=== PATIENT | female | born 1955 | race Caucasian/White ===

== ENCOUNTER → 2016-10-07 | Outpatient (CLI) | payer SELFPAY ==
[~2016-10-07] MED LIST: CLEOCIN HC150 MG/CAP PO; HCTZ 25MG25 MG PO; LEVOTHYROXIN0.075 MG PO; LIPITOR20 MG PO; NEURONTIN; NEURONTIN300 MG/CAP PO; PAROXETINE20 MG PO; ULTRAM 50MG TAB50 MG PO; ZESTRIL 20MG TA20 MG PO
== END ==
LOC: WCC 09:48
DX: E11.621 Type 2 diabetes mellitus with foot ulcer (principal); L89.892 Pressure ulcer of other site, stage 2
CPT/HCPCS: 27510; A6197; G0463

== ENCOUNTER → 2016-10-14 | Outpatient (CLI) | payer SELFPAY | LOC: WCC 08:19 | DX: E11.621 Type 2 diabetes mellitus with foot ulcer (principal); L89.892 Pressure ulcer of other site, stage 2 | CPT/HCPCS: 27510; A6197; G0463 ==

== ENCOUNTER → 2016-10-24 | Outpatient (CLI) | payer SELFPAY | LOC: WCC 10:25 | DX: E11.621 Type 2 diabetes mellitus with foot ulcer (principal); L97.519 Non-pressure chronic ulcer of other part of right foot with unspecified severity; Z89.422 Acquired absence of other left toe(s) | CPT/HCPCS: 27510; A6197; G0463 ==

== ENCOUNTER → 2016-10-31 | Outpatient (CLI) | payer SELFPAY | END | disposition home or self-care (01) | LOC: EUO 12-25 13:30 → EDSTATUS 12-25 13:30 → WCC 13:25 → EUO 13:25 | DX: E11.621 Type 2 diabetes mellitus with foot ulcer (principal); L97.529 Non-pressure chronic ulcer of other part of left foot with unspecified severity | CPT/HCPCS: 27510; A6197; G0463 ==

== ENCOUNTER 2016-11-15 12:30 | Outpatient (RCR) | payer SELFPAY | END 2016-11-22 12:39 | disposition home or self-care (01) | LOC: WSOT 12:30 | DX: M79.642 Pain in left hand (principal); M79.641 Pain in right hand; R53.1 Weakness ==

== ENCOUNTER 2016-11-15 13:00 | Outpatient (RCR) | payer SELFPAY | END 2016-11-22 12:40 | disposition home or self-care (01) | LOC: WSPT 13:00 | DX: R53.1 Weakness (principal) ==

== ENCOUNTER → 2016-11-21 | Outpatient (CLI) | payer MEDICARE | LOC: WCC 10-31 10:45 | DX: E11.621 Type 2 diabetes mellitus with foot ulcer (principal); L97.509 Non-pressure chronic ulcer of other part of unspecified foot with unspecified severity | CPT/HCPCS: 27510; A6197; G0463 ==

== ENCOUNTER 2017-01-10 13:00 | Outpatient (RCR) | payer MEDICARE | END 2017-01-30 15:25 | disposition home or self-care (01) | LOC: WSOT 13:00 | DX: M62.81 Muscle weakness (generalized) (principal); M25.50 Pain in unspecified joint | CPT/HCPCS: G8978-GP; G8979-GP; G8980-GP; G8987-GO; G8988-GO; G8989-GO ==

== ENCOUNTER → 2017-08-07 | Outpatient (CLI) | payer MEDICARE | LOC: COL.RAD 13:02 | DX: M48.061 Spinal stenosis, lumbar region without neurogenic claudication (principal); M51.26 Other intervertebral disc displacement, lumbar region; M47.817 Spondylosis without myelopathy or radiculopathy, lumbosacral region; E11.42 Type 2 diabetes mellitus with diabetic polyneuropathy ==

== ENCOUNTER 2017-08-22 14:45 | Outpatient (RCR) | payer MEDICARE | END 2017-09-06 10:13 | disposition home or self-care (01) | LOC: WSPT 14:45 | DX: G60.9 Hereditary and idiopathic neuropathy, unspecified (principal); R29.6 Repeated falls; M62.81 Muscle weakness (generalized); M25.50 Pain in unspecified joint | CPT/HCPCS: G8978-GP; G8979-GP; G8980-GP ==

== ENCOUNTER → 2018-01-26 | Outpatient (CLI) | payer MEDICARE, OTHER ==
[2018-01-26 11:41] LABS: INR 1.1 (0.8-3.0); PROTHROMBIN TIME 12.3 SECONDS (9.7-12.8)
[2018-01-26 11:44] LABS: BASO # 0.1 (0.0-0.2); BASO % 0.6 % (0.0-2.0); EOS # 0.4 (0.0-0.7); EOS % 4.1 % (0-4.0); GRAN # 5.1 (1.4-6.5); GRAN % 60.4 % (42.2-75.2); HEMATOCRIT 40.1 % (37.0-47.0); HEMOGLOBIN 13.5 g/dl (12.5-16.0); LYMPH # 2.4 (1.2-3.4); LYMPH % 28.8 % (20.0-51.0); MEAN CELL VOLUME 88 fl (80.0-100.0); MEAN CORPUSCULAR HEMOGLOBIN 30 pg (27.0-31.0); MEAN CORPUSCULAR HGB CONC 34 g/dl (33.0-37.0); MEAN PLATELET VOLUME 11.4 fl (7.4-10.4); MONO # 0.5 (0.1-0.6); MONO % 5.9 % (1.7-9.3); PLATELET COUNT 212 K/mm3 (130-400); RED BLOOD COUNT 4.57 M/mm3 (4.10-5.30); REDCELL DISTRIBUTION WIDTH-CV 13.7 % (11.5-14.5)
[2018-01-26 11:46] LABS: ALBUMIN 4.1 gm/dL (3.5-5.0); BILIRUBIN,TOTAL 0.5 mg/dL (0.0-1.0); CALCIUM 10.1 mg/dL (8.4-10.2); CREATININE, serum 0.67 mg/dL (0.52-1.25); POTASSIUM 3.5 mmol/L (3.4-5.0); TOTAL PROTEIN 7.9 gm/dL (6.4-8.2)
== END ==
LOC: COL.LAB 10:53
PROVIDERS: Registered Nurse
DX: Z01.818 Encounter for other preprocedural examination (principal); E78.5 Hyperlipidemia, unspecified; I10 Essential (primary) hypertension; E66.01 Morbid (severe) obesity due to excess calories; E11.9 Type 2 diabetes mellitus without complications

== ENCOUNTER 2018-02-20 13:00 | Outpatient (RCR) | payer MEDICARE, OTHER | END 2018-02-22 17:48 | disposition home or self-care (01) | LOC: WSPT 13:00 | DX: Z01.818 Encounter for other preprocedural examination (principal); M17.12 Unilateral primary osteoarthritis, left knee | CPT/HCPCS: G8978-GP; G8979-GP; G8980-GP ==

== ENCOUNTER 2018-05-16 08:45 | Outpatient (RCR) | payer MEDICARE | END 2018-05-24 | disposition home or self-care (01) | LOC: WSPT | DX: Z47.1 Aftercare following joint replacement surgery (principal); Z96.652 Presence of left artificial knee joint | CPT/HCPCS: G8978-GP; G8979-GP; G8980-GP ==

== ENCOUNTER 2018-05-29 13:15 | Outpatient (RCR) | payer MEDICARE | END 2018-08-27 | disposition home or self-care (01) | LOC: WSPT | DX: Z47.1 Aftercare following joint replacement surgery (principal); Z96.652 Presence of left artificial knee joint ==

== ENCOUNTER → 2020-10-09 | Outpatient (CLI) | payer MEDICARE | LOC: MC.RAD 09:51 | DX: Z12.31 Encounter for screening mammogram for malignant neoplasm of breast (principal); N63.10 Unspecified lump in the right breast, unspecified quadrant; N63.20 Unspecified lump in the left breast, unspecified quadrant ==

== ENCOUNTER → 2020-10-15 | Outpatient (CLI) | payer MEDICARE | LOC: MC.RAD 13:46 | DX: N60.01 Solitary cyst of right breast (principal); N63.22 Unspecified lump in the left breast, upper inner quadrant ==

== ENCOUNTER 2020-11-10 06:28 | Day surgery (SDC) | payer MEDICARE ==
[~2020-11-10] VITALS: Ht 167.6 cm; Wt 127.4 kg
[2020-11-10 07:40] VITALS: BP 134/62; PULSE 20; TEMP 98.3
[2020-11-10] MEDS ORDERED: LYRICA200 MG PO (07:48)
[2020-11-10] MEDS ORDERED: HCTZ 25MG TAB25 MG PO (07:49)
[2020-11-10] MEDS ORDERED: CRESTOR20 MG PO (07:49)
[2020-11-10] MEDS ORDERED: MELATONIN5 M1 PO (07:50)
[2020-11-10] MEDS ORDERED: ASPIRIN 81M81 MG/TA2 PO (07:51)
[2020-11-10] MEDS ORDERED: MASON NATURAL500 MG PO (07:51)
[2020-11-10] MEDS ORDERED: TYLENOL 500MG500 MG PO (07:52)
[2020-11-10] MEDS ORDERED: VITAMIN B12 781 TAB PO (07:52)
[2020-11-10] MEDS ORDERED: DUO-KAPS1 CAP PO (07:53)
[2020-11-10] MEDS ORDERED: GLUCOPHAGE500 MG/TAB PO (07:54)
[2020-11-10] MEDS ORDERED: PRINIVIL20 MG PO (07:54)
[2020-11-10] MEDS ORDERED: PAXIL 20MG20 MG PO (07:55)
[2020-11-10] MEDS ORDERED: TIROSINT25 MC1 PO (07:55)
--- NOTE | 2020-11-10 09:45 | NUR ---
Patient taken to radiology per cart.
--- NOTE | 2020-11-10 11:20 | NUR ---
Patient returns to room 6 per cart from radiology and is resting on the cart. Siderails up x2 and call light in reach.
[2020-11-10] MEDS ORDERED: MOTRIN 600600 MG/TAB PO (15:03)
[2020-11-10] MEDS ORDERED: NORCO 325 MG-51 TAB PO (15:03)
[2020-11-10 15:30] VITALS: BP 109/52; PULSE 85; TEMP 98.3
--- NOTE | 2020-11-10 15:30 | NUR ---
TO RM 6 PER CART FROM PACU. ALERT ORIENTED X3, TALKING WITH STAFF. INCISION CLEAN AND DRY WITH SKIN ADHESIVE. DENIES PAIN OR DISCOMFORT. DENIES NAUSEA
[2020-11-10 15:45] VITALS: BP 109/57; PULSE 86
--- NOTE | 2020-11-10 15:45 | NUR ---
RECEIVED MUFFIN AND CRANBERRRY JUICE.
[2020-11-10 16:00] VITALS: BP 107/50; PULSE 89
--- NOTE | 2020-11-10 16:00 | NUR ---
ATE 100% AND TOLERATED WELL. PATIENT TALKING TO FRIENDS ON PHONE.
--- NOTE | 2020-11-10 16:15 | NUR ---
AMBULATED TO BATHROOM USING CANE WITH ONE ASSIST.
--- NOTE | 2020-11-10 16:30 | NUR ---
VOIDED AND AMBULATED BACK TO WITH CANE. HAD TO REMIND PATIENT TO SLOW HER GAIT DOWN TO MAKE IT MORE STEADY. RECEIVED DISCHARGE INSTRUCTIONS AND VERBALIZED UNDERSTANDING. DISCONTINUED IV AND INT. CALLED FRIEND FOR RIDE HOME. ASSISTED PATIENT DRESSED.
--- NOTE | 2020-11-10 16:56 | NUR ---
DISCHARGED PER WC BY NURSING STAFF TO PRIVATE CAR IN CARE OF FRIEND ALL PERSONAL BELONGINGS SENT WITH PATIENT.
== END 2020-11-10 16:57 | disposition home or self-care (01) ==
LOC: SDCO 06:28
DX: C50.412 Malignant neoplasm of upper-outer quadrant of left female breast (principal); E11.42 Type 2 diabetes mellitus with diabetic polyneuropathy; E11.621 Type 2 diabetes mellitus with foot ulcer; L97.509 Non-pressure chronic ulcer of other part of unspecified foot with unspecified severity; E66.01 Morbid (severe) obesity due to excess calories; Z68.41 Body mass index [BMI] 40.0-44.9, adult; Z20.822 Contact with and (suspected) exposure to COVID-19; E03.9 Hypothyroidism, unspecified; J45.909 Unspecified asthma, uncomplicated; I10 Essential (primary) hypertension; G89.29 Other chronic pain; M54.9 Dorsalgia, unspecified; E78.5 Hyperlipidemia, unspecified; M19.90 Unspecified osteoarthritis, unspecified site; F32.9 Major depressive disorder, single episode, unspecified; Z17.0 Estrogen receptor positive status [ER+]; Z88.0 Allergy status to penicillin; Z79.84 Long term (current) use of oral hypoglycemic drugs; Z79.890 Hormone replacement therapy; Z89.421 Acquired absence of other right toe(s); Z79.899 Other long term (current) drug therapy; Z80.8 Family history of malignant neoplasm of other organs or systems
CPT/HCPCS: A9541; J1100; J2250; J2405; J2704; J2765; J3010; J7030; J7120

== ENCOUNTER → 2021-03-08 | Outpatient (CLI) | payer MEDICARE, MEDICAID ==
[~2021-03-08] MED LIST changes: +ASPIRIN 81M81 MG/TA2 PO; +CRESTOR20 MG PO; +DUO-KAPS1 CAP PO; +GLUCOPHAGE500 MG/TAB PO; +HCTZ 25MG TAB25 MG PO; +LYRICA200 MG PO; +MASON NATURAL500 MG PO; +MELATONIN5 M1 PO; +MOTRIN 600600 MG/TAB PO; +NORCO 325 MG-51 TAB PO; +PAXIL 20MG20 MG PO; +PRINIVIL20 MG PO; +TIROSINT25 MC1 PO; +TYLENOL 500MG500 MG PO; +VITAMIN B12 781 TAB PO
== END ==
LOC: MC.RAD 11:00
DX: N60.01 Solitary cyst of right breast (principal); R92.2 Inconclusive mammogram

== ENCOUNTER → 2021-10-26 | Outpatient (CLI) | payer MEDICARE, MEDICAID | LOC: MC.RAD 14:27 | DX: Z85.3 Personal history of malignant neoplasm of breast (principal); Z98.890 Other specified postprocedural states; Z92.3 Personal history of irradiation ==

== ENCOUNTER → 2022-02-24 | Outpatient (CLI) | payer MEDICARE, MEDICAID | LOC: MC.RAD 02-11 14:00 | DX: N64.89 Other specified disorders of breast (principal); Z98.890 Other specified postprocedural states ==

== ENCOUNTER 2022-04-15 08:00 | Outpatient (RCR) | payer MEDICARE, MEDICAID | END 2022-04-17 | disposition home or self-care (01) | LOC: MKS.ESL.PT | DX: R29.6 Repeated falls (principal) ==

== ENCOUNTER 2022-05-16 08:00 | Outpatient (RCR) | payer MEDICARE, MEDICAID | END 2022-05-18 | disposition home or self-care (01) | LOC: MKS.ESL.PT | DX: R29.6 Repeated falls (principal) ==